=== PATIENT | male | born 1995 | race Caucasian/White ===

== ENCOUNTER 2017-02-27 20:40 | Emergency (ER) | payer OTHER ==
[~2017-02-27 20:40] MED LIST: BENADRYL25 M2 PO; MOTRIN 200200 MG/TAB PO; [UNRECOGNIZED DRUG - OTHER] PO; [UNRECOGNIZED DRUG - REMARK]
[2017-02-27 21:26] VITALS: BP 139/79
== END 2017-02-27 21:26 | disposition home or self-care (01) ==
LOC: ED 20:40
DX: S61.411A Laceration without foreign body of right hand, initial encounter (principal); W26.8XXA Contact with other sharp object(s), not elsewhere classified, initial encounter; Y92.009 Unspecified place in unspecified non-institutional (private) residence as the place of occurrence of the external cause; F17.200 Nicotine dependence, unspecified, uncomplicated; Z23 Encounter for immunization; Z88.0 Allergy status to penicillin
CPT/HCPCS: 90715; A4550; A4649

== ENCOUNTER 2019-04-05 16:00 | Outpatient (RCR) | payer OTHER | END 2019-04-05 16:30 | disposition still patient (30) | LOC: CANSCHRCR → PT 16:00 | DX: M25.511 Pain in right shoulder (principal); M62.838 Other muscle spasm ==

== ENCOUNTER 2019-09-28 09:30 | Outpatient (RCR) | payer OTHER, BC | END 2019-09-28 10:00 | disposition still patient (30) | LOC: PT 09:30 | DX: M25.551 Pain in right hip (principal); M54.31 Sciatica, right side; M79.604 Pain in right leg ==